=== PATIENT | male | born 2000 | race African-American/Black ===

== ENCOUNTER 2022-09-29 20:46 | Emergency (ER) | payer OTHER ==
--- NOTE | 2022-09-29 21:04 | ED Physician Documentation ---
PD HPI MHE - Stated complaint Stated Complaint: MHE - History obtained from History obtained from: Patient - Additional information Additional information: HPI from patient. Patient presents due to feeling depressed and having suicidal thoughts. He strongly denies having any specific plan. Patient says he has had similar feelings and thoughts in the past, and was on several different medications that seem to be helpful, but he ran out of these over a year ago and has not followed back up with a medical practitioner. Patient says that, instead, he had been using alcohol to curb his feelings of anxiety, depression, but that he has been sober for 7 months now. Patient says he is interested in reconnecting with a therapist. Review of Systems Psychiatric: reports: Depressed, Anxiety, Insomnia. denies: Suicidal (Patient says that he has had thoughts of self-harm, but has no plan and he tells me he has no intention of acting on these thoughts.), Homicidal, Hallucinations, Delusions PD PAST MEDICAL HISTORY - Past Medical History Other Past Medical History: Unclear if patient has been specifically diagnosed with any mental-health diagnoses (such as depression) - Present Medications Home Medications: Ambulatory Orders Medication Instructions Recorded Confirmed hydrOXYzine HCL [Hydroxyzine HCl] 25 mg PO Q8HR PRN #20 tablet 09/29/22 traZODone [Desyrel] 100 mg PO HS PRN #10 tablet 09/29/22 - Allergies Allergies/Adverse Reactions: Allergies Allergy/AdvReac Type Severity Reaction Status Date / Time No Known Drug Allergies Allergy Verified 09/29/22 21:06 PD ED PE NORMAL - Vitals Vital signs reviewed: Yes - General General: Alert and oriented X 3, No acute distress, Well developed/nourished - Cardiac Cardiac: RRR, No murmur - Respiratory Respiratory: No respiratory distress, Clear bilaterally - Neuro Neuro: Alert and oriented X 3 Eye Opening: Spontaneous Motor: Obeys Commands Verbal: Oriented GCS Score: 15 - Psych Psych: Normal mood, Normal affect Results - Vitals Vitals: Oxygen O2 Source Room air PD Medical Decision Making - ED course Complexity details: considered differential, d/w patient ED course: Patient is calm, cooperative, oriented x3. He strongly denies intent of self- harm, but does admit to having recurrent thoughts of self-harm without specific plan. He says that these thoughts are not new, but that he had been controlling his feelings of depression and thoughts of self-harm with alcohol. He says he has been sober from alcohol for 7 months, but recently has had increasing problems with feeling depressed, thoughts of self-harm, and insomnia. I discussed with the patient the options I can offer him at this time: Telemetry psychiatric consult (I explained what this entails and the possible benefits of such a consult, such as medication recommendations), social work consult (unfortunately, social media assistant is not available until Saturday morning, which means patient would have to stay in the emergency department for over 24 more hours), or inpatient treatment for mental health issues (which would entail initial testing for medical clearance, followed by ED RN contacting appropriate facilities regarding bed availability). Patient declines all 3 of these options and tells me he feels quite safe being discharged at this time. He says he will work on outpatient follow-up. He says he had been on medications previously which seem to help with his mood and help with his sleep, but he can only remember that these medications including trazodone and Atarax. I am comfortable prescribing these 2 medications for this patient for these indications, and provided him with prescriptions for them. I strongly encouraged him to return to the emergency department at any time he feels he was to be reevaluated and/or feels unsafe at home. Departure - Departure Disposition: 01 Home, Self Care Clinical Impression: Depression Qualifiers: Depression Type: unspecified Qualified Code(s): F32.A - Depression, unspecified Condition: Good Instructions: ED Depression Prescriptions: hydrOXYzine HCL [Hydroxyzine HCl] 25 mg PO Q8HR PRN #20 tablet PRN Reason: Anxiety traZODone [Desyrel] 100 mg PO HS PRN #10 tablet PRN Reason: Insomnia Comments: It sounds like you are dealing with many issues including possible depression. You have indicated to me that you feel safe going home at this time. Certainly, you can return to the emergency department at any time you want to be reevaluated, particularly if you feel unsafe and feel like you might act on any thoughts of self-harm. As we discussed, you should contact your insurance provider on Saturday (Saturday if they are available on ) to work on arranging follow-up with a primary care provider. I am providing you with prescriptions for both trazodone and hydroxyzine (Atarax). The trazodone is to be used at night as needed for insomnia. You can use the Atarax for the same purpose if the trazodone alone is ineffective. The Atarax can be taken up to 3 times per day, but do not drive for minimum of 6 hours after dose of Atarax, as it typically will cause drowsiness. The Atarax can be used for sleep but also can help with anxiety. Discharge Date/Time: 09/29/22 22:47
[2022-09-29 21:07] VITALS: BP 130/75
== END 2022-09-29 22:47 | disposition home or self-care (01) ==
LOC: ED 20:46
DX: F32.A Depression, unspecified (principal)
CPT/HCPCS: 99281; 99283

== ENCOUNTER 2022-10-05 23:27 | Outpatient (CLI) | payer OTHER | END 2022-10-05 23:59 | disposition critical access hospital (66) | LOC: EMS 23:27 | DX: S51.812A Laceration without foreign body of left forearm, initial encounter (principal); X78.1XXA Intentional self-harm by knife, initial encounter; R45.851 Suicidal ideations | CPT/HCPCS: A0425; A0429 ==

== ENCOUNTER 2022-10-05 23:42 | Emergency (ER) | payer SELFPAY ==
[2022-10-05 23:57] VITALS: BP 118/76
--- NOTE | 2022-10-06 00:03 | ED Physician Documentation ---
PD HPI MHE - Stated complaint Stated Complaint: SI - Chief complaint Chief Complaint: MHE - History obtained from History obtained from: Patient - History of Present Illness Primary symptom: Suicidal ideation, Self harm - cut Timing - onset: Today Pain level max: 0 Pain level now: 0 Contributing factors: Family (s/p argument with ) Similar symptoms before: Diagnosis (depression) - Additional information Additional information: 22-year-old male states that he had an argument with his sivakumar and then to relieve stress performed superficial cutting on the left forearm. He states he is not suicidal or homicidal currently. He states his is about 4-1/2 months . He is looking forward to the of the child. Review of Systems Constitutional: denies: Fever, Chills Respiratory: denies: Cough GI: denies: Nausea, Vomiting, Diarrhea Skin: denies: Rash Musculoskeletal: denies: Neck pain, Back pain Neurologic: denies: Headache PD PAST MEDICAL HISTORY - Past Medical History Past Medical History: Yes Endocrine/Autoimmune: Other ("pituitary cyst") Psych: Depression, Anxiety, Other - Past Surgical History Past Surgical History: No - Present Medications Home Medications: Ambulatory Orders Medication Instructions Recorded Confirmed hydrOXYzine HCL [Hydroxyzine HCl] 25 mg PO Q8HR PRN #20 tablet 09/29/22 traZODone [Desyrel] 100 mg PO HS PRN #10 tablet 09/29/22 - Allergies Allergies/Adverse Reactions: Allergies Allergy/AdvReac Type Severity Reaction Status Date / Time No Known Drug Allergies Allergy Verified 10/05/22 23:56 - Social History Does the pt smoke?: Yes Smoking Status: Current every day smoker Does the pt drink ETOH?: No Does the pt have substance abuse?: Yes - POLST Patient has POLST: No PD ED PE NORMAL - Vitals Vital signs reviewed: Yes - General General: Alert and oriented X 3, No acute distress - HEENT HEENT: PERRL, Moist mucous membranes - Neck Neck: Supple, no meningeal sign - Cardiac Cardiac: RRR, Strong equal pulses - Respiratory Respiratory: No respiratory distress, Clear bilaterally - Abdomen Abdomen: Soft, Non tender, Non distended - Derm Derm: Warm and dry - Extremities Extremities: Other (superficial cuts to L forearm) - Neuro Neuro: Alert and oriented X 3 - Psych Psych: Normal mood, Normal affect Results - Vitals Vitals: Vital Signs - 24 hr 06/02/23 23:50 Temperature 36.8 C Heart Rate 78 Respiratory 17 Rate Blood Pressure 118/76 O2 Saturation 98 Oxygen O2 Source Room air - Labs Labs: Laboratory Tests 10/06/22 10/06/22 10/06/22 00:02 00:07 00:07 WBC 5.5 RBC 4.43 L Hgb 12.8 L Hct 38.3 L MCV 86.5 MCH 28.9 MCHC 33.4 RDW 13.2 Plt Count 226 MPV 10.1 Neut # (Auto) 3.4 Lymph # (Auto) 1.5 [place] # (Auto) 0.4 Eos # (Auto) 0.0 Baso # (Auto) 0.0 Absolute Nucleated RBC 0.00 Nucleated RBC % 0.0 Sodium 137 Potassium 3.2 L Chloride 107 Carbon Dioxide 25 Anion Gap 5.0 L BUN 5 L Creatinine 1.0 Estimated GFR (MDRD) 113 Glucose 113 H Calcium 9.3 Magnesium 1.6 L Total Bilirubin 0.6 AST 18 ALT 10 Alkaline Phosphatase 55 Total Creatine Kinase 208 Total Protein 7.3 Albumin 4.1 Globulin 3.2 Albumin/Globulin Ratio 1.3 Lipase 25 TSH Free T4 Free T3 pg/mL Urine Color YELLOW Urine Clarity CLEAR Urine pH 6.0 Ur Specific [place] 1.025 Urine Protein NEGATIVE Urine Glucose (UA) NEGATIVE Urine Ketones TRACE Urine Occult Blood NEGATIVE Urine Nitrite NEGATIVE Urine Bilirubin NEGATIVE Urine Urobilinogen 0.2 (NORMAL) Ur Leukocyte Esterase NEGATIVE Ur Microscopic Review NOT INDICATED Urine Culture Comments NOT INDICATED Salicylates < 6.0 Urine Opiates Screen NEGATIVE Ur Oxycodone Screen NEGATIVE Urine Methadone Screen NEGATIVE Ur Propoxyphene Screen NEGATIVE Acetaminophen < 10 L Ur Barbiturates Screen NEGATIVE Ur Tricyclics Screen NEGATIVE Ur Phencyclidine Scrn NEGATIVE Ur Amphetamine Screen NEGATIVE U Methamphetamines Scrn NEGATIVE U Benzodiazepines Scrn NEGATIVE Urine Cocaine Screen NEGATIVE U Cannabinoids Screen POSITIVE H Ethyl Alcohol < 5.0 10/06/22 00:07 WBC RBC Hgb Hct MCV MCH MCHC RDW Plt Count MPV Neut # (Auto) Lymph # (Auto) [place] # (Auto) Eos # (Auto) Baso # (Auto) Absolute Nucleated RBC Nucleated RBC % Sodium Potassium Chloride Carbon Dioxide Anion Gap BUN Creatinine Estimated GFR (MDRD) Glucose Calcium Magnesium Total Bilirubin AST ALT Alkaline Phosphatase Total Creatine Kinase Total Protein Albumin Globulin Albumin/Globulin Ratio Lipase TSH 2.88 Free T4 0.93 Free T3 pg/mL 3.47 Urine Color Urine Clarity Urine pH Ur Specific [place] Urine Protein Urine Glucose (UA) Urine Ketones Urine Occult Blood Urine Nitrite Urine Bilirubin Urine Urobilinogen Ur Leukocyte Esterase Ur Microscopic Review Urine Culture Comments Salicylates Urine Opiates Screen Ur Oxycodone Screen Urine Methadone Screen Ur Propoxyphene Screen Acetaminophen Ur Barbiturates Screen Ur Tricyclics Screen Ur Phencyclidine Scrn Ur Amphetamine Screen U Methamphetamines Scrn U Benzodiazepines Scrn Urine Cocaine Screen U Cannabinoids Screen Ethyl Alcohol PD Medical Decision Making - ED course Complexity details: reviewed results, re-evaluated patient, considered differential, d/w patient, d/w family ED course: 22-year-old male with superficial cutting tonight. He denies feeling suicidal or homicidal currently. No significant lab abnormalities. Thyroid testing is normal. A minimally low potassium and magnesium, not clinically significant. P ositive for cannabinoids, otherwise negative toxicology screen. Patient's did come to the emergency department and stated that she does not feel that he is going to harm himself. She confirms that he has not been hospitalized for suicidal ideation before and has never attempted suicide. The patient also states he does not feel like he is going to harm himself. While awaiting telepsychiatry, the patient decided he did not want to stay in the emergency department any longer and left the department with his . I did see the patient in the hallway as he was walking out of the emergency department and informed him that he was welcome to return at any time should he change his mind about being evaluated. Information for plate and family services was given. Patient still elects to leave at this time. I did strongly recommend to the patient that he stay for telepsychiatry evaluation. Patient has crisis line information at home. This document was made in part using voice recognition software. While efforts are made to proofread this document, sound alike and grammatical errors may occur. Departure - Departure Disposition: 07 Against Medical Advice Clinical Impression: Depression Qualifiers: Depression Type: unspecified Qualified Code(s): F32.A - Depression, unspecified Condition: Good Instructions: ED Depression
[2022-10-06 00:12] LABS: BASOPHILS % (AUTO) 0.6 %; EOSINOPHILS % (AUTO) 0.7 %; HCT - HEMATOCRIT 38.3 % (42.0-52.0); HGB - HEMOGLOBIN 12.8 g/dL (14.0-18.0); LYMPHOCYTES # (AUTO) 1.5 10^3/uL (1.5-3.5); LYMPHOCYTES % (AUTO) 28.3 %; MEAN CORPUSCULAR HEMOGLOBIN 28.9 pg (27.0-31.0); MEAN CORPUSCULAR HGB CONC 33.4 g/dL (32.0-36.0); MEAN CORPUSCULAR VOLUME 86.5 fL (80.0-94.0); MEAN PLATELET VOLUME 10.1 fL (7.4-11.4); MONOCYTES # (AUTO) 0.4 10^3/uL (0.0-1.0); MONOCYTES % (AUTO) 8.1 %; NEUTROPHILS # (AUTO) 3.4 10^3/uL (1.5-6.6); NEUTROPHILS % (AUTO) 62.1 %; PLT - PLATELET COUNT 226 10^3/uL (130-450); RED BLOOD COUNT 4.43 10^6/uL (4.70-6.10); RED CELL DISTRIBUTION WIDTH 13.2 % (12.0-15.0); WHITE BLOOD COUNT 5.5 x10^3/uL (4.8-10.8)
[2022-10-06 00:25] LABS: MUDS CUTOFF CONCENTRATIONS CUTOFF CONC BELOW:
[2022-10-06 00:27] LABS: ACETAMINOPHEN < 10 ug/mL (10-30); ALBUMIN 4.1 g/dL (3.2-5.5); ALBUMIN/GLOBULIN RATIO 1.3 (1.0-2.2); ALKALINE PHOSPHATASE 55 IU/L (42-121); ALT ALANINE AMINOTRANSFERASE 10 IU/L (10-60); AST ASPARTATE AMINOTRANSFERASE 18 IU/L (10-42); BILIRUBIN,TOTAL 0.6 mg/dL (0.2-1.0); BUN - BLOOD UREA NITROGEN 5 mg/dL (6-20); CALCIUM 9.3 mg/dL (8.5-10.3); CARBON DIOXIDE - CO2 25 mmol/L (21-32); CHLORIDE 107 mmol/L (101-111); CK- CREATINE KINASE 208 IU/L (22-269); ETOH - ETHANOL < 5.0 mg/dL; GFR - MDRD 113 (>89); GLUCOSE 113 mg/dL (70-100); LIPASE 25 U/L (22-51); MAGNESIUM 1.6 mg/dL (1.7-2.8); POTASSIUM 3.2 mmol/L (3.5-5.0); SALICYLATE < 6.0 mg/dL; SODIUM 137 mmol/L (135-145); TOTAL PROTEIN 7.3 g/dL (6.7-8.2)
[2022-10-06 00:38] LABS: AMPHETAMINE SCREEN,URINE NEGATIVE (NEGATIVE); BENZODIAZEPINES SCREEN, URINE NEGATIVE (NEGATIVE); BILIRUBIN,URINE NEGATIVE (NEGATIVE); CLARITY,URINE CLEAR (CLEAR); COCAINE SCREEN URINE NEGATIVE (NEGATIVE); GLUCOSE, URINE (UA) NEGATIVE (NEGATIVE); ICTOTEST,URINE NEGATIVE; KETONES,URINE (UA) TRACE mg/dL (NEGATIVE); LEUKOCYTE ESTERASE, URINE NEGATIVE (NEGATIVE); METHADONE SCREEN, URINE NEGATIVE (NEGATIVE); METHAMPHETAMINES SCREEN, URINE NEGATIVE (NEGATIVE); NITRITE,URINE NEGATIVE (NEGATIVE); OCCULT BLOOD,URINE NEGATIVE (NEGATIVE); OPIATE SCREEN, URINE NEGATIVE (NEGATIVE); PROTEIN,URINE NEGATIVE (NEGATIVE); THC CANNABINOID SCREEN, URINE POSITIVE (NEGATIVE); TRICYCLIC ANTIDEPRESSANT,URINE NEGATIVE (NEGATIVE); UROBILINOGEN,URINE 0.2 (NORMAL) E.U./dL (NORMAL)
[2022-10-06 00:39] LABS: BARBITURATE SCREEN,UR NEGATIVE (NEGATIVE); OXYCODONE SCREEN, URINE NEGATIVE (NEGATIVE); PROPOXYPHENE SCREEN, URINE NEGATIVE (NEGATIVE)
[2022-10-06 00:42] LABS: THYROID STIMULATING HORMONE 2.88 uIU/mL (0.34-5.60)
[2022-10-06 00:43] LABS: FREE T3 3.47 pg/mL (2.5-3.9)
[2022-10-06 00:44] LABS: FREE T4 (FREE THYROXINE) 0.93 ng/dL (0.58-1.64)
== END 2022-10-06 01:43 | disposition left against medical advice (07) ==
LOC: EDUNIT# → EDBD → ED 23:42
DX: S51.812A Laceration without foreign body of left forearm, initial encounter (principal); W45.8XXA Other foreign body or object entering through skin, initial encounter; X58.XXXA Exposure to other specified factors, initial encounter; F32.A Depression, unspecified; F17.200 Nicotine dependence, unspecified, uncomplicated
CPT/HCPCS: 36415; 80053; 80306; 80307; 80320; 80329; 81001; 81003; 82550; 83690; 83735; 84439; 84443; 84481; 85025; 87086; 99283

== ENCOUNTER 2022-11-02 06:57 | Outpatient (CLI) | payer OTHER | END 2022-11-02 23:59 | disposition critical access hospital (66) | LOC: EMS 06:57 | DX: R45.851 Suicidal ideations (principal) | CPT/HCPCS: A0425; A0429 ==

== ENCOUNTER 2022-11-02 07:16 | Emergency (ER) | payer OTHER ==
--- NOTE | 2022-11-02 07:52 | ED Physician Documentation ---
PD HPI MHE - Stated complaint Stated Complaint: MHE - Chief complaint Chief Complaint: MHE - History obtained from History obtained from: Patient - History of Present Illness Primary symptom: Anxiety, Off meds. No: Suicidal ideation, Suicide attempt Timing - onset: How many weeks ago (he states particular problems with arguing with the past few weeks, though has been anxious for longer. He states he does not have local counselor.) Contributing factors: Sig other, Substance abuse - ETOH (did have alcohol use regularly last year but has been not drinking for months. Denies drug use other than cannibis.). No: Substance abuse - drugs Recently seen: Emergency Dept (for similar and was given short script for the trazodone and hydroxyzine that he says did help for that period of time (1 week).) Review of Systems Constitutional: denies: Fever, Chills Nose: denies: Rhinorrhea / runny nose, Congestion Throat: denies: Sore throat Cardiac: denies: Chest pain / pressure Respiratory: denies: Cough, Wheezing GI: denies: Abdominal Pain, Vomiting, Diarrhea Musculoskeletal: denies: Neck pain, Back pain Neurologic: denies: Altered mental status, Headache Endocrine: reports: Weight loss. denies: Weight gain, Easy bruising / bleeding PD PAST MEDICAL HISTORY - Past Medical History Endocrine/Autoimmune: Other ("pituitary cyst" with abnormal ?prolactin level. found on MRI in prior eval for headaches. He states cyst was 2 mm on MRI about 1 1/2 years ago. ) Psych: Depression, Anxiety, Other - Past Surgical History Past Surgical History: No - Present Medications Home Medications: Ambulatory Orders Medication Instructions Recorded Confirmed Trazodone HCl 100 mg PO HS PRN #30 tablet 11/02/22 hydrOXYzine HCL [Hydroxyzine HCl] 25 mg PO BID PRN #40 tablet 11/02/22 - Allergies Allergies/Adverse Reactions: Allergies Allergy/AdvReac Type Severity Reaction Status Date / Time No Known Drug Allergies Allergy Verified 11/02/22 07:28 - Social History Does the pt smoke?: Yes Smoking Status: Current every day smoker Does the pt drink ETOH?: No Does the pt have substance abuse?: Yes - Immunizations Immunizations are current?: Yes - POLST Patient has POLST: No PD ED PE NORMAL - Vitals Vital signs reviewed: Yes - General General: Alert and oriented X 3, Well developed/nourished - Neck Neck: Supple, no meningeal sign, No adenopathy - Cardiac Cardiac: RRR, No murmur - Respiratory Respiratory: Clear bilaterally - Abdomen Abdomen: Soft, Non tender - Derm Derm: Normal color, Warm and dry - Extremities Extremities: Normal ROM s pain - Psych Psych: No: Normal affect (anxious but pleasant and conversant. ) Results - Vitals Vitals: Vital Signs - 24 hr 11/02/22 11/02/22 07:21 12:10 Temperature 36.4 C L Heart Rate 85 67 Respiratory 16 18 Rate Blood Pressure 143/86 H 118/71 O2 Saturation 100 98 Oxygen O2 Source Room air - Labs Labs: Laboratory Tests 11/02/22 11/02/22 11/02/22 08:33 08:33 08:33 WBC 4.4 L RBC 4.91 Hgb 14.2 Hct 42.8 MCV 87.2 MCH 28.9 MCHC 33.2 RDW 13.6 Plt Count 241 MPV 9.9 Neut # (Auto) 2.6 Lymph # (Auto) 1.2 L Door # (Auto) 0.5 Eos # (Auto) 0.0 Baso # (Auto) 0.1 Absolute Nucleated RBC 0.00 Nucleated RBC % 0.0 Sodium 138 Potassium 3.9 Chloride 101 Carbon Dioxide 29 Anion Gap 8.0 BUN 7 Creatinine 1.0 Estimated GFR (MDRD) 113 Glucose 91 Calcium 9.6 Magnesium 2.0 Total Bilirubin 0.9 AST 22 ALT 14 Alkaline Phosphatase 56 Total Creatine Kinase 363 H Total Protein 7.8 Albumin 4.6 Globulin 3.2 Albumin/Globulin Ratio 1.4 Lipase 26 TSH 1.07 Prolactin 8.87 Cortisol 13.8 Urine Color Urine Clarity Urine pH Ur Specific [place] Urine Protein Urine Glucose (UA) Urine Ketones Urine Occult Blood Urine Nitrite Urine Bilirubin Urine Urobilinogen Ur Leukocyte Esterase Ur Microscopic Review Urine Culture Comments Salicylates < 6.0 Urine Opiates Screen Ur Oxycodone Screen Urine Methadone Screen Ur Propoxyphene Screen Acetaminophen < 10 L Ur Barbiturates Screen Ur Tricyclics Screen Ur Phencyclidine Scrn Ur Amphetamine Screen U Methamphetamines Scrn U Benzodiazepines Scrn Urine Cocaine Screen U Cannabinoids Screen Ethyl Alcohol < 5.0 11/02/22 09:24 WBC RBC Hgb Hct MCV MCH MCHC RDW Plt Count MPV Neut # (Auto) Lymph # (Auto) Door # (Auto) Eos # (Auto) Baso # (Auto) Absolute Nucleated RBC Nucleated RBC % Sodium Potassium Chloride Carbon Dioxide Anion Gap BUN Creatinine Estimated GFR (MDRD) Glucose Calcium Magnesium Total Bilirubin AST ALT Alkaline Phosphatase Total Creatine Kinase Total Protein Albumin Globulin Albumin/Globulin Ratio Lipase TSH Prolactin Cortisol Urine Color YELLOW Urine Clarity CLEAR Urine pH 6.5 Ur Specific [place] 1.015 Urine Protein NEGATIVE Urine Glucose (UA) NEGATIVE Urine Ketones 15 H Urine Occult Blood NEGATIVE Urine Nitrite NEGATIVE Urine Bilirubin NEGATIVE Urine Urobilinogen 1 (NORMAL) Ur Leukocyte Esterase NEGATIVE Ur Microscopic Review NOT INDICATED Urine Culture Comments NOT INDICATED Salicylates Urine Opiates Screen NEGATIVE Ur Oxycodone Screen NEGATIVE Urine Methadone Screen NEGATIVE Ur Propoxyphene Screen NEGATIVE Acetaminophen Ur Barbiturates Screen NEGATIVE Ur Tricyclics Screen NEGATIVE Ur Phencyclidine Scrn NEGATIVE Ur Amphetamine Screen NEGATIVE U Methamphetamines Scrn NEGATIVE U Benzodiazepines Scrn NEGATIVE Urine Cocaine Screen NEGATIVE U Cannabinoids Screen POSITIVE H Ethyl Alcohol PD Medical Decision Making - ED course Complexity details: reviewed results (he states he has pituitary adenoma and has abnormal prolactin and other endocrine levels. Being followed and he states plan is for periodic repeat imaging. Labs here okay though. ), considered differential (he states anxiety and had argument with his . She may not allow him back to house. He has been off anxiety meds for months due to not having local psychologist/ gotten refill. Not suicidal nor homicidal. Would like info regarding local counseling. ), d/w patient, d/w construction safety consultant (social workLuz Maria, did not have feeling of patient at risk of self/other harm. I concur. He was given resources for counseling. He can make appt. He had been on Trazodone/Hydroxyzine for anxiety and is off those due to not getting refill. Can xript him these meds for few weeks. ) Departure - Departure Disposition: 01 Home, Self Care Clinical Impression: Stress reaction, Anxiety Condition: Stable Record reviewed to determine appropriate education?: Yes Instructions: ED Stress React Prescriptions: hydrOXYzine HCL [Hydroxyzine HCl] 25 mg PO BID PRN #40 tablet PRN Reason: Anxiety Trazodone HCl 100 mg PO HS PRN #30 tablet PRN Reason: Insomnia Comments: Our health social work professor gave you information and referral numbers for counseling etc. Call to set up appointments. I wrote a prescription for continuing your usual prior medication with trazodone at night for sleep and hydroxyzine twice daily if needed for anxiety. I sent those prescriptions to [facility] pharmacy. Stay well-hydrated otherwise. Consider couples counseling etc. with you and your . I understand you have said you have tried that already but it may be suggested again. Discharge Date/Time: 11/02/22 12:26
[2022-11-02 08:38] LABS: BASOPHILS # (AUTO) 0.1 10^3/uL (0.0-0.1); BASOPHILS % (AUTO) 1.1 %; EOSINOPHILS % (AUTO) 0.7 %; HCT - HEMATOCRIT 42.8 % (42.0-52.0); HGB - HEMOGLOBIN 14.2 g/dL (14.0-18.0); LYMPHOCYTES # (AUTO) 1.2 10^3/uL (1.5-3.5); LYMPHOCYTES % (AUTO) 27.8 %; MEAN CORPUSCULAR HEMOGLOBIN 28.9 pg (27.0-31.0); MEAN CORPUSCULAR HGB CONC 33.2 g/dL (32.0-36.0); MEAN CORPUSCULAR VOLUME 87.2 fL (80.0-94.0); MEAN PLATELET VOLUME 9.9 fL (7.4-11.4); MONOCYTES # (AUTO) 0.5 10^3/uL (0.0-1.0); MONOCYTES % (AUTO) 11.5 %; NEUTROPHILS # (AUTO) 2.6 10^3/uL (1.5-6.6); NEUTROPHILS % (AUTO) 58.7 %; PLT - PLATELET COUNT 241 10^3/uL (130-450); RED BLOOD COUNT 4.91 10^6/uL (4.70-6.10); RED CELL DISTRIBUTION WIDTH 13.6 % (12.0-15.0); WHITE BLOOD COUNT 4.4 x10^3/uL (4.8-10.8)
[2022-11-02 08:58] LABS: ACETAMINOPHEN < 10 ug/mL (10-30); ALBUMIN 4.6 g/dL (3.2-5.5); ALBUMIN/GLOBULIN RATIO 1.4 (1.0-2.2); ALKALINE PHOSPHATASE 56 IU/L (42-121); ALT ALANINE AMINOTRANSFERASE 14 IU/L (10-60); AST ASPARTATE AMINOTRANSFERASE 22 IU/L (10-42); BILIRUBIN,TOTAL 0.9 mg/dL (0.2-1.0); BUN - BLOOD UREA NITROGEN 7 mg/dL (6-20); CALCIUM 9.6 mg/dL (8.5-10.3); CARBON DIOXIDE - CO2 29 mmol/L (21-32); CHLORIDE 101 mmol/L (101-111); CK- CREATINE KINASE 363 IU/L (22-269); ETOH - ETHANOL < 5.0 mg/dL; GFR - MDRD 113 (>89); GLUCOSE 91 mg/dL (70-100); LIPASE 26 U/L (22-51); POTASSIUM 3.9 mmol/L (3.5-5.0); SALICYLATE < 6.0 mg/dL; SODIUM 138 mmol/L (135-145); TOTAL PROTEIN 7.8 g/dL (6.7-8.2)
[2022-11-02 09:09] LABS: CORTISOL 13.8 ug/dL
[2022-11-02 09:12] LABS: THYROID STIMULATING HORMONE 1.07 uIU/mL (0.34-5.60)
[2022-11-02 09:18] LABS: PROLACTIN 8.87 ng/mL
[2022-11-02 09:33] LABS: MUDS CUTOFF CONCENTRATIONS CUTOFF CONC BELOW:
[2022-11-02 09:37] LABS: BILIRUBIN,URINE NEGATIVE (NEGATIVE); CLARITY,URINE CLEAR (CLEAR); GLUCOSE, URINE (UA) NEGATIVE (NEGATIVE); KETONES,URINE (UA) 15 mg/dL (NEGATIVE); LEUKOCYTE ESTERASE, URINE NEGATIVE (NEGATIVE); NITRITE,URINE NEGATIVE (NEGATIVE); OCCULT BLOOD,URINE NEGATIVE (NEGATIVE); PH,URINE 6.5 PH (5.0-7.5); PROTEIN,URINE NEGATIVE (NEGATIVE); UROBILINOGEN,URINE 1 (NORMAL) E.U./dL (NORMAL)
[2022-11-02 09:50] LABS: AMPHETAMINE SCREEN,URINE NEGATIVE (NEGATIVE); BARBITURATE SCREEN,UR NEGATIVE (NEGATIVE); BENZODIAZEPINES SCREEN, URINE NEGATIVE (NEGATIVE); COCAINE SCREEN URINE NEGATIVE (NEGATIVE); METHADONE SCREEN, URINE NEGATIVE (NEGATIVE); METHAMPHETAMINES SCREEN, URINE NEGATIVE (NEGATIVE); OPIATE SCREEN, URINE NEGATIVE (NEGATIVE); OXYCODONE SCREEN, URINE NEGATIVE (NEGATIVE); PROPOXYPHENE SCREEN, URINE NEGATIVE (NEGATIVE); THC CANNABINOID SCREEN, URINE POSITIVE (NEGATIVE); TRICYCLIC ANTIDEPRESSANT,URINE NEGATIVE (NEGATIVE)
[2022-11-02 12:27] VITALS: BP 118/71
== END 2022-11-02 12:26 | disposition home or self-care (01) ==
LOC: EDUNIT# → ED 07:16
DX: F41.9 Anxiety disorder, unspecified (principal); F43.9 Reaction to severe stress, unspecified; F17.200 Nicotine dependence, unspecified, uncomplicated
CPT/HCPCS: 36415; 80053; 80306; 80307; 80320; 80329; 81001; 81003; 82533; 82550; 83690; 83735; 84146; 84443; 85025; 87086; 99283; 99284

== ENCOUNTER 2022-11-10 19:18 | Outpatient (CLI) | payer SELFPAY | END 2022-11-10 23:59 | disposition critical access hospital (66) | LOC: EMS 19:18 | DX: R45.851 Suicidal ideations (principal); F10.129 Alcohol abuse with intoxication, unspecified; Z63.5 Disruption of family by separation and divorce | CPT/HCPCS: A0425; A0427 ==

== ENCOUNTER 2023-09-21 18:47 | Emergency (ER) | payer OTHER ==
[2023-09-21 19:07] LABS: RAPID STREP SCREEN Negative (Negative)
[2023-09-21 19:13] VITALS: O2SAT 100
--- NOTE | 2023-09-21 19:52 | ED Physician Documentation ---
PD HPI URI - Stated complaint Stated Complaint: SORE THROAT - Chief complaint Chief Complaint: Heent - History obtained from History obtained from: Patient - History of Present Illness Timing duration: Days (4-5) Timing details: Gradual onset Pain level max: 4 Pain level now: 4 Associated symptoms: Nasal congestion, Rhinorrhea, Sore throat, Dry cough. No: Fever, Chills, Dyspnea Contributing factors: Sick contact - Additional information Additional information: Patient is a 23-year-old male who states that he has had a cough, rhinorrhea and congestion for the past 4 to 5 days. Sore throat as well. He does smoke. He states that his son has been sick with the same. He was concerned about potential strep throat. No fevers. No chills. Nothing makes it better or worse. Review of Systems Constitutional: denies: Fever, Chills Respiratory: reports: Cough GI: denies: Vomiting Skin: denies: Rash Musculoskeletal: denies: Neck pain, Back pain Neurologic: denies: Headache PD PAST MEDICAL HISTORY - Past Medical History Past Medical History: Yes Cardiovascular: None Respiratory: None Neuro: None Endocrine/Autoimmune: Other GI: None : None HEENT: None Psych: Depression, Anxiety, Other Musculoskeletal: None Derm: None - Past Surgical History Past Surgical History: No - Present Medications Home Medications: Ambulatory Orders Medication Instructions Recorded Confirmed Albuterol Sulf [Ventolin Hfa 1 - 2 puffs INH Q4HR PRN #1 each 09/21/23 Inhaler] Benzonatate [Tessalon] 200 mg PO TID PRN #30 cap 09/21/23 Cetirizine HCl/Pseudoephedrine 1 tab PO BID PRN #20 tab 09/21/23 [Zyrtec-D ER 5 mg-120 mg Tablet] Ibuprofen [Motrin] 800 mg PO Q8H PRN #30 tablet 09/21/23 - Allergies Allergies/Adverse Reactions: Allergies Allergy/AdvReac Type Severity Reaction Status Date / Time No Known Drug Allergies Allergy Verified 09/21/23 18:53 - Social History Does the pt smoke?: Yes Smoking Status: Current every day smoker Does the pt drink ETOH?: Yes Does the pt have substance abuse?: Yes - Immunizations Immunizations are current?: Yes - POLST Patient has POLST: No PD ED PE NORMAL - Vitals Vital signs reviewed: Yes - General General: Alert and oriented X 3, No acute distress - HEENT HEENT: PERRL, Ears normal, Moist mucous membranes, Other (Mild posterior pharyngeal erythema, no tonsillar exudates. Uvula midline. Normal phonation. No trismus.) - Neck Neck: Supple, no meningeal sign, Other (Shotty anterior lymphadenopathy) - Cardiac Cardiac: RRR, Strong equal pulses - Respiratory Respiratory: No respiratory distress, Other (Mild wheezing bilaterally) - Abdomen Abdomen: Soft, Non tender, Non distended - Derm Derm: Warm and dry - Neuro Neuro: Alert and oriented X 3 - Psych Psych: Normal mood, Normal affect Results - Vitals Vitals: Vital Signs - 24 hr 09/21/23 09/21/23 09/21/23 18:53 20:13 20:52 Temperature 36.8 C Heart Rate 60 79 111 H Respiratory 16 16 16 Rate Blood Pressure 113/58 L 117/62 O2 Saturation 100 100 Oxygen O2 Source Room air - Labs Labs: Laboratory Tests 09/21/23 18:55 Group A Strep Rapid Negative PD Medical Decision Making - ED course Complexity details: reviewed results, re-evaluated patient, considered differential, d/w patient ED course: Patient is well-appearing, nontoxic. Afebrile. His wheezing resolved with a nebulizer treatment. Rapid strep is negative. Exam is more consistent with a viral pharyngitis. Given dexamethasone and we will place on albuterol for home. Prescribed cough medication and decongestants as well. No hypoxia. No respiratory distress. No evidence of pneumonia. No indication for antibiotic therapy at this time. No evidence of peritonsillar or retropharyngeal abscess. Patient counseled regarding signs and symptoms for which I believe and urgent re-evaluation would be necessary. Patient with good understanding of and agreement to plan and is comfortable going home at this time This document was made in part using voice recognition software. While efforts are made to proofread this document, sound alike and grammatical errors may occur. Departure - Departure Disposition: 01 Home, Self Care Clinical Impression: Viral URI Condition: Good Instructions: ED Viral Syndrome Follow-Up: your,doctor in 1 week [Other] Prescriptions: Albuterol Sulf [Ventolin Hfa Inhaler] 1 - 2 puffs INH Q4HR PRN #1 each PRN Reason: Shortness Of Air/Wheezing Ibuprofen [Motrin] 800 mg PO Q8H PRN #30 tablet PRN Reason: PAIN &/OR FEVER Benzonatate [Tessalon] 200 mg PO TID PRN #30 cap PRN Reason: Cough Cetirizine HCl/Pseudoephedrine [Zyrtec-D ER 5 mg-120 mg Tablet] 1 tab PO BID PRN #20 tab PRN Reason: nasal congestion Comments: Your prescriptions were sent to [facility] in [place]. This appears to be a viral upper respiratory illness that will resolve on its own. Drink plenty of fluids. Cool fluids and popsicles will help soothe the throat as well. Forms: PCP List Discharge Date/Time: 09/21/23 20:53
[2023-09-21] MEDS: CHERRY SYRUP 10 ML UDC PO ONE (19:58)
[2023-09-21] MEDS: DEXAMETHASONE 10 MG/ML VIAL PO STA (19:58)
[2023-09-21] MEDS: ALBUTEROL NEB 2.5 MG/3 ML INH STA (20:09)
[2023-09-21 20:58] VITALS: BP 117/62
== END 2023-09-21 20:53 | disposition home or self-care (01) ==
LOC: ED 18:47
DX: J06.9 Acute upper respiratory infection, unspecified (principal); B97.89 Other viral agents as the cause of diseases classified elsewhere; F17.200 Nicotine dependence, unspecified, uncomplicated
CPT/HCPCS: 87070; 87430; 94640; 99283; A9270